=== PATIENT | female | born 1985 | race Caucasian/White ===

== ENCOUNTER 2017-06-20 17:35 | Inpatient (IN) | payer OTHER ==
[~2017-06-20] VITALS: Ht 165.1 cm; Wt 68.0 kg
[~2017-06-20 17:35] MED LIST: MACROBID 100 M100 MG PO; ONDANSETRON HCL4 MG PO; REGLAN10 M1 PO
[2017-06-20 18:49] VITALS: BP 124/81
[2017-06-20 19:19] LABS: ABSOLUTE BASOPHIL COUNT 0 /CUMM (0.0-0.2); ABSOLUTE EOSINOPHIL COUNT 0.1 /CUMM (0.0-0.7); ABSOLUTE GRANULOCYTE CT 6.8 /CUMM (1.4-6.5); ABSOLUTE LYMPH COUNT 1.8 /CUMM (1.2-3.4); ABSOLUTE MONOCYTE COUNT 1.3 /CUMM (0.10-0.60); BASOPHIL % 0.3 % (0.0-2.0); EOSINOPHIL % 0.6 % (0-5); GRANULOCYTE % 68.4 % (42.2-75.2); HEMATOCRIT 33.3 % (37-47); MEAN CORPUSCULAR HGB 28.3 PG (27.0-31.0); MEAN CORPUSCULAR VOLUME 88.4 FL (81.0-99.0); PLATELET COUNT 276 /CUMM (130-400); RBC DISTRIBUTION WIDTH 13.8 % (11.5-14.5); RED BLOOD CELL CT 3.77 /CUMM (4.20-5.40); WHITE BLOOD CELL COUNT 9.9 /CUMM (4.8-10.8)
--- NOTE | 2017-06-21 11:16 | History & Physical ---
General Information and HPI MD Statement: I have seen and personally examined SRI NARVAEZ and documented this H&P. The patient is a 32 year old female at [39] weeks and 4] days gestation who presented with a chief complaint of [LOF]. History of Present Illness: This patient is a 31-year-old 4 para 1 LMP 09/16/2016 EDC 06/23/2017 who presents to labor and delivery complaining of leakage of fluid last night. 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 Overnight she remained stable and did not progress into active labor. Her care is complete and remarkable for positive urine tox for THC and a diagnosis of polyhydramnios per patient. She is admitted with a diagnosis of premature rupture of membranes, however she has a poor cervical examination and will therefore need cervical ripening followed by Pitocin induction of labor. I expect spontaneous vaginal delivery. 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 EENTM: Reports: no symptoms. Cardiovascular: Reports: no symptoms. Respiratory: Reports: no symptoms. GI: Reports: no symptoms. Genitourinary: Reports: see HPI. Musculoskeletal: Reports: no symptoms. Skin: Reports: no symptoms. Neurological/Psychological: Reports: no symptoms. Hematologic/Endocrine: Reports: no symptoms. Immunologic/Allergic: Reports: no symptoms. All Other Systems: Reviewed and Negative Exam & Diagnostic Data Last 24 Hrs of Vital Signs/I&O Vital Signs Date Time Temp Pulse Resp B/P B/P Pulse O2 O2 Flow FiO2 Mean Ox Delivery Rate 06/20 1849 124/81 Intake & Output 06/21 1600 06/21 0800 06/21 0000 Intake Total Output Total Balance Patient 150 lb Weight Obstetric Exam Wgt Gained During : 30 pounds Pelvimetry: Gynecoid Dilation (cm): 0 Effacement (%): 0 Station: -2 Membranes: SROM Fluid: unknown Fundal Height (cm): 39 Multiple Gestation? No Contractions: Occasional Infant #1 - FHR Baseline: 125 Category: 1 Estimated Weight: 7 pounds Presentation: Cephalic Patient for Induction? Yes Dunne Score Dunne Score Response Value Cervix Position: posterior 0 Cervix Consistency: soft 2 Cervix Effacement: 0-30% 0 Cervix Dilation: closed 0 Cervix Station: -2 1 Total 3 Physical Exam: HEENT: Normocephalic atraumatic Chest: Clear to auscultation bilaterally Cardiovascular: Normal S1-S2 Abdomen: Cephalic presentation estimated weight 7 pounds Pelvic: Long thick closed posterior and soft Extremities: No clubbing cyanosis or edema Neurologic: Nonfocal Labs Blood Type & Rh: O+ Antibody Screen: Negative Hct/Hgb & Platelets #1: 37, 12, 321 Hct/Hgb & Platelets #2: 31, 10, 296 Rubella: Immediate VDRL #1: Nonreactive VDRL #2: Nonreactive HbsAg: Negative HIV #1: Negative HIV #2 Negative 1 Hr P Group B Strep: Negative Initial Ultrasound: The normal limits Anatomy Ultrasound: Within normal limits Ultrasound for EFW: 6 Genetic Testing: Negative Last 24 Hrs of Labs/Sherwin: Laboratory Tests 06/20/171854: CBC w Diff NO MAN DIFF REQ, RBC 3.77 L, MCV 88.4, MCH 28.3, MCHC 32.0 L, RDW 13.8, MPV 9.0, Gran % 68.4, Lymphocytes % 17.9 L, Monocytes % 12.8 H, Eosinophils % 0.6, Basophils % 0.3, Absolute Granulocytes 6.8 H, Absolute Lymphocytes 1.8, Absolute Monocytes 1.3 H, Absolute Eosinophils 0.1, Absolute Basophils 0 06/20/171817: Membrane Rupture POSITIVE 06/20/17 1745: Membrane Rupture POSITIVE, Urine Opiates Screen < 100, Methadone Screen < 40, Barbiturate Screen < 60, Ur Phencyclidine Scrn < 6.00, Amphetamines Screen < 100, U Benzodiazepines Scrn < 85, Urine Cocaine Screen < 50, Urine Cannabis Screen 53.00 H, Urine Color YEL, Urine Clarity CLEAR, Urine pH 6.0, Ur Specific Snyder 1.025, Urine Protein TRACE H, Urine Ketones NEG, Urine Nitrite NEG, Urine Bilirubin NEG, Urine Urobilinogen 0.2, Ur Leukocyte Esterase NEG, Ur Microscopic SEDIMENT EXAMINED, Urine RBC 1-3, Urine WBC 1-3 H, Ur Epithelial Cells FEW, Urine Crystals 1+ CA OX H, Urine Bacteria RARE H, Urine Mucus FEW, Urine Hemoglobin SMALL H, Urine Glucose NEG Assessment/Plan Assessment/Plan: Premature rupture of membranes at term with polyhydramnios negative GBS Poor Dunne score Plan: Misoprostol cervical ripening followed by Pitocin induction of labor; we' ll monitor closely for signs and symptoms of infection As Ranked By This Provider Problem List: 1. Premature rupture of membranes Core Measures Venous Thromboembolism VTE Risk Factors / No Mechanical VTE Prophylaxis d/t LowRisk-No Interven Req'd No VTE Pharm Prophylaxis d/t Bleeding (Active)
--- NOTE | 2017-06-21 22:56 | Labor & Delivery Summary ---
Delivery Summary Vaginal Delivery: Vaginal: vertex Episiotomy/Lacerations: Episiotomy/Lacerations: none Placenta: Placenta: spontanteous, normal, 3 vessel Anesthesia: epidural Baby's Weight: pending skin to skin Apgars - 1 Min: 9 Apgars - 5 Min: 9
[2017-06-22 08:13] LABS: ABSOLUTE BASOPHIL COUNT 0.1 /CUMM (0.0-0.2); ABSOLUTE EOSINOPHIL COUNT 0.1 /CUMM (0.0-0.7); ABSOLUTE GRANULOCYTE CT 12.3 /CUMM (1.4-6.5); ABSOLUTE LYMPH COUNT 2.1 /CUMM (1.2-3.4); ABSOLUTE MONOCYTE COUNT 1.5 /CUMM (0.10-0.60); BASOPHIL % 0.4 % (0.0-2.0); EOSINOPHIL % 0.3 % (0-5); HEMATOCRIT 34.6 % (37-47); MEAN CORPUSCULAR HGB 28.7 PG (27.0-31.0); MEAN CORPUSCULAR HGB CONC 32.1 G/DL (33.0-37.0); MEAN CORPUSCULAR VOLUME 89.2 FL (81.0-99.0); MEAN PLATELET VOLUME 9.2 FL (7.4-10.4); PLATELET COUNT 265 /CUMM (130-400); RBC DISTRIBUTION WIDTH 13.8 % (11.5-14.5); RED BLOOD CELL CT 3.88 /CUMM (4.20-5.40)
--- NOTE | 2017-06-22 12:28 | PN- Post Delivery/GYN ---
Subjective Subjective: NO COMPLAINTS Objective Last 24 Hrs of Vital Signs/I&O VSS PER CHART Physical Exam: PE THIN BF IN NAD HEENT PERRLA EOMI PE THIN BF I NAD ABD SOFT NT FUNDUS FIRM NT LOCHIA MINIMAL EXT -EDEMA-HOMANS Assessment/Plan Assessment/Plan ASSESS S/P PLAN CONT PPC
[2017-06-23] MEDS ORDERED: IBUPROFEN800 M1 PO (08:41)
== END 2017-06-23 10:17 | DRG 560 ==
LOC: CBCO 17:35 → GNO 18:42
PROVIDERS: Obstetrics & Gynecology
PROC: 10E0XZZ Delivery of Products of Conception, External Approach (ICD-10-PCS; principal; 2017-06-21)
PROC: 3E0P7VZ Introduction of Hormone into Female Reproductive, Via Natural or Artificial Opening (ICD-10-PCS; principal; 2017-06-21)
DX: O42.02 Full-term premature rupture of membranes, onset of labor within 24 hours of rupture (principal); O40.3XX0 Polyhydramnios, third trimester, not applicable or unspecified; O99.324 Drug use complicating childbirth; F12.90 Cannabis use, unspecified, uncomplicated; Z3A.39 39 weeks gestation of pregnancy; Z37.0 Single live birth; Z75.2 Other waiting period for investigation and treatment
CPT/HCPCS: GNOP; GNOS; 36415; 80307; 81001; 84112; J1200